=== PATIENT | female | born 1990 | race Caucasian/White ===

== ENCOUNTER → 2017-12-08 11:35 | Outpatient (CLI) | payer OTHER, SELFPAY | PROVIDERS: Visit Provider Obstetrics & Gynecology | DX: R30.0 Dysuria (principal) | CPT/HCPCS: 87086 ==

== ENCOUNTER → 2024-06-08 | Outpatient (CLI) | payer BC, SELFPAY | END | disposition home or self-care (01) | LOC: MTLAB 16:51 | PROVIDERS: PCP Family Medicine; Referring Provider Family Medicine; Visit Provider Family Medicine | DX: R10.9 Unspecified abdominal pain (principal) | CPT/HCPCS: 36415; 82784; 83516; 86255 ==

== ENCOUNTER → 2024-07-13 | Outpatient (CLI) | payer BC, SELFPAY ==
[2024-07-25 11:07] LABS: HPV APTIMA, High Risk Negative (Negative)
== END | disposition home or self-care (01) ==
LOC: LABSPEC 15:58
PROVIDERS: PCP Family Medicine; Referring Provider Advanced Practice Midwife; Visit Provider Advanced Practice Midwife
DX: Z12.4 Encounter for screening for malignant neoplasm of cervix (principal)
CPT/HCPCS: 87624; 88175; G0145

== ENCOUNTER → 2024-10-21 | Outpatient (CLI) | payer BC, SELFPAY | END | disposition home or self-care (01) | LOC: LAB 16:35 | PROVIDERS: PCP Family Medicine; Referring Provider Advanced Practice Midwife; Visit Provider Advanced Practice Midwife | DX: E28.2 Polycystic ovarian syndrome (principal) | CPT/HCPCS: 36415; 84443 ==

== ENCOUNTER → 2024-12-29 | Outpatient (CLI) | payer BC, SELFPAY ==
[2024-12-29 16:51] LABS: Absolute Neutrophil Count 2.3 X10^3/uL (2.0-7.7); Basophil# 0.04 X10^3/uL; Basophil% 0.8 % (0-1); Eosinophil# 0.09 X10^3/uL; Eosinophils% 1.7 % (0-5); Hematocrit 41.4 % (37-47); Hemoglobin 14.3 g/dL (12.0-15.0); Lymphocyte % 46.2 % (19-41); Mean Corp Hgb Conc 34.5 g/dL (32-36); Mean Corpuscular Hgb 30.6 pg (27.0-32.0); Mean Corpuscular Volume 88.5 fL (81-99); Mean Platelet Vol. 10.5 fl (6.2-12.0); Monocyte# 0.36 X10^3/uL; Monocyte% 6.9 % (0-10); NRBC Flagged by Analyzer 0 % (0-5); Neutrophil % 44.2 % (47-70); Platelet Count 274 K/mm3 (150-450); RBC Distribution Width CV 12.2 % (11.6-14.6); RBC Distribution Width SD 39.8 fl (35.1-43.9); Red Blood Count 4.68 M/mm3 (4.2-5.4); White Blood Count 5.2 K/mm3 (4.4-11.0)
[2024-12-29 17:39] LABS: Estradiol 37.6 pg/mL; Follicle Stimulating Hormone 5.9 mIU/mL
== END | disposition home or self-care (01) ==
LOC: LAB 16:01
PROVIDERS: PCP Family Medicine; Referring Provider Advanced Practice Midwife; Visit Provider Advanced Practice Midwife
DX: E28.2 Polycystic ovarian syndrome (principal)
CPT/HCPCS: 36415; 82670; 83001; 85025

== ENCOUNTER → 2025-01-04 | Outpatient (CLI) | payer BC, SELFPAY ==
[2025-01-05 21:07] LABS: Chlamydia By Nucleic Acid AMP Negative (Negative); Gonococcus By Nucleic Acid AMP Negative (Negative)
== END | disposition home or self-care (01) ==
LOC: LABSPEC 10:55
PROVIDERS: PCP Family Medicine; Referring Provider Nurse Practitioner Family; Visit Provider Nurse Practitioner Family
DX: N89.8 Other specified noninflammatory disorders of vagina (principal); Z20.2 Contact with and (suspected) exposure to infections with a predominantly sexual mode of transmission
CPT/HCPCS: 87070; 87077; 87205; 87491; 87591

== ENCOUNTER → 2025-04-03 | Outpatient (CLI) | payer BC, SELFPAY ==
--- NOTE | 2025-04-03 18:00 | US_ITS ---
PROCEDURE: TRANSVAGINAL NON- 04/03/2025 REASON FOR EXAM: IRREG MENSES TECHNIQUE: TRANSVAGINAL NON- COMPARISON: None FINDINGS: LMP: March 13, 2025. Measurements: Uterus: 6.4 cm x 3.8 cm x 3 cm with a volume of 37.66 mL. There are 2 cervical polyps seen. The larger measures 6 mm x 5 mm x 5 mm. Endometrial Thickness: 6 mm. It is hyperechoic. Right Ovary: 3.1 cm x 2.9 cm x 2 cm with a volume of 9.06 mL. Left Ovary: 3.2 cm x 2.9 cm x 2.2 cm with a volume of 10.7 mL. Uterus: Normal size, myometrial echotexture, and contour. There are 2, cervical polyps. Endometrium: Unremarkable Right ovary: Multiple subcentimeter follicles are seen in the periphery of the ovary. Left ovary: Multiple subcentimeter follicles are seen in the periphery of the ovary. Other: No large pelvic mass identified. US/Transvaginal Non- IMPRESSION: Cervical polyps. Findings suggestive of possible polycystic ovarian syndrome. Reading Location: [place] [id number]
== END | disposition home or self-care (01) ==
PROVIDERS: PCP Family Medicine; Referring Provider Nurse Practitioner Family; Visit Provider Nurse Practitioner Family
DX: N92.6 Irregular menstruation, unspecified (principal)
CPT/HCPCS: 76830

== ENCOUNTER → 2025-04-05 | Outpatient (CLI) | payer BC, SELFPAY ==
--- NOTE | 2025-04-05 09:29 | US_ITS ---
PROCEDURE: BREAST LIMITED UNILATERAL 04/05/2025 REASON FOR EXAM: F, Age 34 y/o , BREAST PAIN Right axillary pain. COMPARISON: Prior mammogram done earlier in the day.. TECHNIQUE: BREAST LIMITED UNILATERAL. Ultrasound of the right axilla was performed. FINDINGS: There are 2 benign-appearing lymph nodes. The larger lymph node measures 1 cm x 0.3 cm x 0.7 cm. US/Breast Limited Unilateral IMPRESSION: There are 2, small benign-appearing lymph nodes in the right axilla. BI-RADS 2: BENIGN RECOMMENDATION: Routine annual follow-up in 1 Year Reading Location: [id number]
--- NOTE | 2025-04-05 09:29 | BI_ITS ---
EXAM: DIAG MAMM W/CAD, BILAT 04/05/2025 CLINICAL HISTORY: F, Age 34 y/o , BREAST PAIN TECHNIQUE: DIAG MAMM W/CAD, BILAT. History of sister with breast cancer. COMPARISON: Prior exam(s) dated April 25, 2021 from an outside institution.. FINDINGS: TISSUE DENSITY: The breasts are extremely dense, which lowers the sensitivity of mammography. Bilateral Breast Mammographic Findings: No significant masses, calcifications or other abnormalities are identified. No suspicious masses, areas of developing architectural distortion, or suspicious calcifications. There has been no significant interval change. BI/DIAG MAMM W/CAD, BILAT IMPRESSION: Stable examination. With the patient's history of right axillary pain for 3 mo nths, targeted ultrasound recommended. OVERALL FINAL ASSESSMENT BI-RADS 0: INCOMPLETE - NEED ADDITIONAL IMAGING EVALUATION. RECOMMENDATION: Ultrasound Recommended A letter with findings and recommendations will be mailed to the patient. Reading Location: [id number]
== END | disposition home or self-care (01) ==
PROVIDERS: PCP Family Medicine; Referring Provider Nurse Practitioner Family; Visit Provider Nurse Practitioner Family
DX: N64.4 Mastodynia (principal)
CPT/HCPCS: 76642; 77062; 77066; G0279

== ENCOUNTER → 2025-04-26 | Outpatient (CLI) | payer BC, SELFPAY | END | disposition home or self-care (01) | LOC: LABSPEC 16:25 | PROVIDERS: PCP Family Medicine; Visit Provider Advanced Practice Midwife | DX: B37.31 Acute candidiasis of vulva and vagina (principal) | CPT/HCPCS: 87070; 87205 ==